=== PATIENT | female | born 1995 | race Caucasian/White ===

== ENCOUNTER → 2017-01-06 | Outpatient (CLI) | payer OTHER ==
[~2017-01-06] MED LIST: ACET325T96 PO; VITB2100 PO
[2017-01-10 15:37] LABS: CHLAMYDIA TRACH RNA*** NOT DETECTED (NOT DETECTED); GC (NEIS GONORRHOEAE)RNA** NOT DETECTED (NOT DETECTED)
== END | disposition home or self-care (01) ==
LOC: C.LABSPEC 13:32
PROVIDERS: ATTEND Obstetrics & Gynecology
DX: Z12.4 Encounter for screening for malignant neoplasm of cervix (principal)

== ENCOUNTER → 2017-06-16 | Outpatient (CLI) | payer OTHER ==
[2017-06-16 13:20] LABS: BASO % 0.4 %; BASO ABS # 0.02 K/uL (0-0.2); COMPLETE YES; EOS % 1.8 %; HEMATOCRIT 42.4 % (37-47); IG% 0.2 %; LYMPH % 32.1 %; LYMPH ABS # 1.78 K/uL (1.2-3.4); MEAN CELL VOLUME 90.2 fL (80-100); MEAN CORPUSCULAR HEMOGLOBIN 30.6 pg (25-34); MEAN PLATELET VOLUME 10.7 fL (7.4-10.4); MONO % 7.6 %; NEUT % 57.9 %; PLATELET COUNT 250 K/uL (130-400); WHITE BLOOD COUNT 5.55 K/uL (4.8-10.8)
[2017-06-16 14:14] LABS: FERRITIN 313.7 ng/ml (8.0-388.0); THYROID STIMULATING HORMONE 0.407 uIu/ml (0.300-4.500)
--- NOTE | 2017-06-22 06:35 | CODING QUERY MEDICAL NECESSITY ---
CQSUPPORTING DIAGNOSIS NEEDED A supporting diagnosis is required for the test/procedure performed on this patient in order for us to be reimbursed by the patient's insurance. Please provide a supporting diagnosis for the following test/procedure listed below next to the test name along with your signature. *If there is no additional diagnosis for this patient that would support the following test/procedure please document that below next to the test/procedure. Test(s)/Procedure(s) that require a supporting diagnosis: DOS 06/16/17 VITAMIN D TEST Provider Signature: Date: Thank you Simin [facility] Once completed, please kindly fax back to [phone] For questions please call [phone]
== END | disposition home or self-care (01) ==
LOC: C.LAB 12:02
DX: R53.83 Other fatigue (principal); E55.9 Vitamin D deficiency, unspecified